=== PATIENT | male | born 1940 | race Caucasian/White ===

== ENCOUNTER → 2021-09-27 | Outpatient (CLI) | payer MEDICARE, OTHER ==
[~2021-09-27] MED LIST: IOPAMIDOL 370 MG/ML 100 ML INFUS..BTL INJ ONE; SODIUM CHLORIDE 0.9% 250ML 250 ML ONE
[2021-09-27 13:11] LABS: CREATININE, SERUM 0.99 mg/dL (0.72-1.25)
== END ==
LOC: CT 11:38
PROVIDERS: ATTEND Urology
DX: R31.0 Gross hematuria (principal); D41.4 Neoplasm of uncertain behavior of bladder
CPT/HCPCS: 36415; 74178; 82565; 84520; J7050; Q9967

== ENCOUNTER 2022-07-04 12:09 | Emergency (ER) | payer MEDICARE, OTHER ==
[~2022-07-04] VITALS: Ht 180.3 cm; Wt 83.9 kg
[2022-07-04] MEDS ORDERED: PREDNISONE20 MG PO (12:29)
[2022-07-04] MEDS ORDERED: NAPROSYN500 MG PO (12:29)
[2022-07-04] MEDS ORDERED: ULTRAM 50MG50 MG PO (12:31)
== END 2022-07-04 12:35 | disposition home or self-care (01) ==
LOC: ER 12:19
DX: M25.532 Pain in left wrist (principal); M79.672 Pain in left foot; M79.671 Pain in right foot; M10.9 Gout, unspecified; E11.9 Type 2 diabetes mellitus without complications; Z85.46 Personal history of malignant neoplasm of prostate; Z85.51 Personal history of malignant neoplasm of bladder
CPT/HCPCS: 99282